=== PATIENT | male | born 1960 | race American Indian/Alaskan Native ===

== ENCOUNTER 2016-09-09 00:48 | Emergency (ER) | payer MEDICAID ==
[~2016-09-09] VITALS: Ht 185.4 cm; Wt 136.1 kg
[~2016-09-09 00:48] MED LIST: ADVAIR 100-501 EACH INH; ADVAIR 250/501 PUFFS INH; ALBUTEROL SULF8.5 GM INH; CORTISPORIN EAR10 ML BOTH EARS; DIABETA5 MG ORAL; EAR WAX DROPS15 M1 OT; HYDROCODON-ACE1 EA15 ORAL; IBUPROFEN600 MG ORAL; JANUVIA100 MG ORAL; JANUVIA25 MG ORAL; LISINOPRIL40 MG ORAL; NORCO 10-325 T1 EACH ORAL; NORCO 10/3251 EA ORAL; NORCO 5-325 TA1 EACH ORAL; ONGLYZA5 MG PO; PERCOCET 10-321 EACH ORAL; PERCOCET 5-3251 EACH ORAL; PREDNISONE20 MG ORAL; PROAIR HFA8.5 GM INH; ZANTAC150 MG ORAL; ZITHROMAX250 MG ORAL
[2016-09-09] MEDS ORDERED: Metoclopramide 10mg/2ml Inj IVP ONE (02:30)
[2016-09-09 02:51] LABS: BASOPHILS % (AUTO) 2.3 % (0.0-2.0); EOSINOPHILS % (AUTO) 8.1 % (0.0-3.0); INR 0.9 (0.9-1.1); MEAN CORPUSCULAR HEMOGLOBIN 30.5 PG (27.0-31.0); MEAN CORPUSCULAR HGB CONC 34.3 G/DL (32.0-36.0); MEAN CORPUSCULAR VOLUME 89 FL (80-99); MEAN PLATELET VOLUME 7.3 FL (6.5-10.1); MONOCYTES % (AUTO) 6.2 % (1.0-10.0); NEUTROPHILS % (AUTO) 52.3 % (45.0-75.0); PLATELET COUNT 176 K/UL (150-450); PROTHROMBIN TIME 9.4 SEC (9.30-11.50); RED BLOOD COUNT 4.95 M/UL (4.70-6.10); RED CELL DISTRIBUTION WIDTH 11.4 % (11.6-14.8); WHITE BLOOD COUNT 7.5 K/UL (4.8-10.8)
[2016-09-09 03:00] LABS: TROPONIN I < 0.30 ng/mL (<=0.30)
[2016-09-09 03:01] LABS: ALANINE AMINOTRANSFERASE 41 U/L (3-41); ALBUMIN/GLOBULIN RATIO 1.3 (1.0-2.7); ANION GAP 14 (5-15); ASPARTATE AMINO TRANSFERASE 44 U/L (5-40); CALCIUM 9.2 mg/dL (8.6-10.2); CARBON DIOXIDE 23 mEQ/L (20-30); CHLORIDE 97 mEQ/L (98-107); CREATININE 1.1 mg/dL (0.7-1.2); GLOMERULAR FILTRATION RATE > 60 mL/min (>60); HEMOLYSIS 102; POTASSIUM 4.7 mEQ/L (3.4-4.9); SODIUM 134 mEQ/L (135-145); TOTAL PROTEIN 6.8 g/dL (6.6-8.7)
[2016-09-09 03:12] LABS: APPEARANCE,URINE CLEAR; KETONES,URINE NEGATIVE (NEGATIVE); LEUKOCYTE ESTERASE ,URINE NEGATIVE (NEGATIVE); NITRITE,URINE NEGATIVE (NEGATIVE); PH,URINE 6 (4.5-8.0); UROBILINOGEN,URINE NORMAL MG/DL (0.0-1.0)
[2016-09-09 03:13] LABS: PROTEIN,URINE NEGATIVE (NEGATIVE)
[2016-09-09 03:14] LABS: RBC,URINE 0 /HPF (0 - 0); SQUAMOUS EPITHELIAL CELL,UR FEW /LPF (NONE/OCC); WBC,URINE 0 /HPF (0 - 0)
[2016-09-09 04:24] VITALS: BP 139/82
[2016-09-09] MEDS ORDERED: PREDNISONE20 MG ORAL (04:24)
[2016-09-09] MEDS ORDERED: METFORMIN HCL500 M1 ORAL (04:24)
[2016-09-09 04:50] VITALS: BP 139/82
--- NOTE | 2016-09-09 10:03 | Emergency Room Report ---
History of Present Illness General Chief Complaint: Headache Source: Patient Present Illness HPI The patient is a 56-year-old male who presented after having 5 days of increased headache. The patient gradual onset of symptoms. Patient stated that he been having increased difficulty with his vision. Patient reported having prior history of diabetes. He had noticed some increased difficulty with movements to his left eye. Patient denied any fever. He denied any neck status. Patient had prior history of chronic pain. He had not been having any weakness to his extremities. Patient noticed some facial droop. He had not been vomiting.The patient had been seen at [facility] yesterday. Allergies: Coded Allergies: LIDOCAINE (Verified Allergy, gets cold, 04/23/13) Patient History Past Medical History: see triage record Reviewed Nursing Documentation: PMH: Agreed, PSxH: Agreed Nursing Documentation-PMH Hx Cardiac Problems: Yes - enlarged heart Hx Hypertension: Yes Hx Pacemaker: No Hx Asthma: Yes Hx COPD: No Hx Diabetes: Yes Hx Cancer: No Hx Gastrointestinal Problems: Yes - Hepatitis C, hernia Hx Dialysis: No Hx Neurological Problems: No Hx Cerebrovascular Accident: No Hx Seizures: No Review of Systems All Other Systems: negative except mentioned in HPI Physical Exam Vital Signs Date Time Temp Pulse Resp B/P Pulse Ox O2 Delivery O2 Flow Rate FiO2 09/09/16 00:56 97.5 78 16 122/86 93 Room Air Sp02 EP Interpretation: reviewed, normal General Appearance: normal inspection, well appearing, no apparent distress, alert, GCS 15 Head: atraumatic Eyes: bilateral eye other - left lateral rectus palsy ENT: normal ENT inspection, hearing grossly normal, normal voice Neck: normal inspection, full range of motion, supple, no bony tend Respiratory: normal inspection, lungs clear, normal breath sounds, no respiratory distress, no retraction, no wheezing Cardiovascular #1: regular rate, rhythm, no edema Gastrointestinal: normal inspection, normal bowel sounds, non tender, soft, no guarding, no hernia Genitourinary: no CVA tenderness Musculoskeletal: normal inspection, back normal, normal range of motion Neurologic: normal inspection, alert, oriented x3, responsive, change management coordinator III-XII nml as tested, speech normal Psychiatric: normal inspection, judgement/insight normal, mood/affect normal Skin: normal inspection, normal color, no rash Medical Decision Making Diagnostic Impression: Primary Impression: Diabetes mellitus Additional Impressions: Lateral rectus palsy Neuropathy ER Course The patient is a 56-year-old male presented for headache.Differential diagnoses included but was not limited to skull fracture, subarachnoid hemorrhage, meningitis, aneurysm, mass lesion, intracranial hemorrhage. Because of complexity of patient's case laboratory testing and imaging studies were ordered. CT the head read by radiologist showed no acute CVA or hemorrhage. Laboratory testing was unremarkable except for elevated blood sugar. The patient was noted to have symptoms for 5 days. Patient was given medications for his headache. The patient was advised that he would need to followup for further evaluation of his the facial droop. The patient given prescription for prednisone and metformin. The patient is advised to return if he began persistent vomiting worsening headache or other concerns. Labs Test 09/09/16 01:15 09/09/16 02:00 Urine Color Pale yellow Urine Appearance Clear Urine pH 6 (4.5-8.0) Urine Specific [place] 1.005 (1.005-1.035) Urine Protein Negative (NEGATIVE) Urine Glucose (UA) 3+ (NEGATIVE) Urine Ketones Negative (NEGATIVE) Urine Occult Blood Negative (NEGATIVE) Urine Nitrite Negative (NEGATIVE) Urine Bilirubin Negative (NEGATIVE) Urine Urobilinogen Normal MG/DL (0.0-1.0) Urine Leukocyte Esterase Negative (NEGATIVE) Urine RBC 0 /HPF (0 - 0) Urine WBC 0 /HPF (0 - 0) Urine Squamous Epithelial Cells Few /LPF (NONE/OCC) Urine Bacteria None /HPF (NONE) Urine Opiates Screen Negative (NEGATIVE) Urine Barbiturates Screen Negative (NEGATIVE) Phencyclidine (PCP) Screen Negative (NEGATIVE) Urine Amphetamines Screen Negative (NEGATIVE) Urine Benzodiazepines Screen Negative (NEGATIVE) Urine Cocaine Screen Negative (NEGATIVE) Urine Marijuana (THC) Screen Positive (NEGATIVE) White Blood Count 7.5 K/UL (4.8-10.8) Red Blood Count 4.95 M/UL (4.70-6.10) Hemoglobin 15.1 G/DL (14.2-18.0) Hematocrit 44.1 % (42.0-52.0) Mean Corpuscular Volume 89 FL (80-99) Mean Corpuscular Hemoglobin 30.5 PG (27.0-31.0) Mean Corpuscular Hemoglobin Concent 34.3 G/DL (32.0-36.0) Red Cell Distribution Width 11.4 % (11.6-14.8) Platelet Count 176 K/UL (150-450) Mean Platelet Volume 7.3 FL (6.5-10.1) Neutrophils (%) (Auto) 52.3 % (45.0-75.0) Lymphocytes (%) (Auto) 31.0 % (20.0-45.0) Monocytes (%) (Auto) 6.2 % (1.0-10.0) Eosinophils (%) (Auto) 8.1 % (0.0-3.0) Basophils (%) (Auto) 2.3 % (0.0-2.0) Prothrombin Time 9.4 SEC (9.30-11.50) Prothromb Time International Ratio 0.9 (0.9-1.1) Activated Partial Thromboplast Time 25 SEC (23-33) Sodium Level 134 mEQ/L (135-145) Potassium Level 4.7 mEQ/L (3.4-4.9) Chloride Level 97 mEQ/L (98-107) Carbon Dioxide Level 23 mEQ/L (20-30) Anion Gap 14 (5-15) Blood Urea Nitrogen 25 mg/dL (7-23) Creatinine 1.1 mg/dL (0.7-1.2) Estimat Glomerular Filtration Rate > 60 mL/min (>60) Glucose Level 267 mg/dL (74-106) Calcium Level 9.2 mg/dL (8.6-10.2) Total Bilirubin 0.6 mg/dL (0.0-1.2) Aspartate Amino Transf (AST/SGOT) 44 U/L (5-40) Alanine Aminotransferase (ALT/SGPT) 41 U/L (3-41) Alkaline Phosphatase 79 U/L (40-129) Troponin I < 0.30 ng/mL (<=0.30) Total Protein 6.8 g/dL (6.6-8.7) Albumin 3.9 g/dL (3.5-5.2) Globulin 2.9 g/dL Albumin/Globulin Ratio 1.3 (1.0-2.7) Last Vital Signs Date Time Temp Pulse Resp B/P Pulse Ox O2 Delivery O2 Flow Rate FiO2 09/09/16 04:50 97.5 76 18 139/82 99 Room Air Status: improved Disposition: HOME, SELF-CARE Condition: Stable Scripts Metformin Hcl* (METFORMIN HCL*) 500 Mg Tablet 500 MG ORAL TWICE A DAY, #20 TAB Prov: Andrea Bellamy 09/09/16 Prednisone* (PREDNISONE*) 20 Mg Tablet 40 MG ORAL DAILY, #10 TAB Prov: Andrea Bellamy 09/09/16 Referrals: [facility],REFERRING (PCP) Patient Instructions: [place] Palsy, General Headache Without Cause Andrea Bellamy Sep 09, 2016 10:03
--- NOTE | 2016-09-10 09:29 | Diagnostic Imaging Report ---
Indication: Pain Technique: Continuous helical CT scanning of the head was performed without intravenous contrast material. Axial and coronal 5 mm sections were generated. Radiation dose was minimized using automated exposure control Dose: Total Dose Length Product - DLP thousand [address] Dose Index - CTDIvol(s) 70.38 mGy. Comparison: No Findings: The ventricular system is normal in size and configuration. There is no shift of midline structures. No abnormal extra-axial fluid collections are noted. There is no evidence of intracerebral bleeding. No other abnormal high or low density areas are noted within the brain. There is bilateral ethmoid and right maxillary sinus disease incidentally noted. The calvarium is intact. Impression: Normal CT scan of the head without contrast material. Incidental finding of sinus disease This agrees with the preliminary interpretation provided overnight by [facility] teleradiology service. The CT scanner at [facility] is accredited by the [employer] and the scans are performed using protocols designed to limit radiation exposure to as low as reasonably achievable to attain images of sufficient resolution adequate for diagnostic evaluation.
--- NOTE | 2016-09-10 14:21 | Cardiology Report ---
APPROVED REPORT EKG Measurement Heart [id number] Normal sinus rhythm Right bundle branch block Abnormal ECG
== END 2016-09-09 04:45 | disposition home or self-care (01) ==
LOC: EMR 01:30
DX: E11.9 Type 2 diabetes mellitus without complications (principal); H49.22 Sixth [abducent] nerve palsy, left eye; G62.9 Polyneuropathy, unspecified; I10 Essential (primary) hypertension; Z87.19 Personal history of other diseases of the digestive system; Z87.09 Personal history of other diseases of the respiratory system
CPT/HCPCS: 36415; 70450; 80053; 80300; 81001; 82962; 84484; 85025; 85610; 85730; 93005; 96374; 99284; J2765